=== PATIENT | female | born 1975 ===

== ENCOUNTER 2025-02-22 08:00 | Day surgery (SDC) | payer OTHER ==
[2025-02-18 12:02] VITALS: BP 137/87
[~2025-02-22] VITALS: Ht 160 cm; Wt 68.0 kg
[~2025-02-22 08:00] MED LIST: COZAAR100 MG PO; SYNTHROID112 MCG PO
[2025-02-22] MEDS ORDERED: CEFTRIAXONE SODIUM 2,000 MG VIAL ONE (09:05)
[2025-02-22] MEDS ORDERED: METRONIDAZOLE/SODIUM CHLORIDE 500 MG/100 ML PIGGYBACK IV ONE (09:05)
[2025-02-22] MEDS ORDERED: HEMOSTATIC MATRIX 1 KIT KIT TOP ONE (13:19)
[2025-02-22] MEDS ORDERED: DIBUCAINE 30 GM TUBE ONE (13:20)
[2025-02-22] MEDS ORDERED: BUPIVACAINE HCL/MPF 0.5% 30ML VIAL ONE (13:20)
[2025-02-22] MEDS ORDERED: POVIDONE-IODINE 118 ML BOTT TOP ONE (13:20)
[2025-02-22] MEDS ORDERED: NEURONTIN300 MG PO (14:28)
[2025-02-22] MEDS ORDERED: TRAM1TAB98 PO (14:28)
[2025-02-22] MEDS ORDERED: COLACE100 MG PO (14:28)
[2025-02-22] MEDS ORDERED: ONDANSETRON HCL 2 MG/ML VIAL ONE (15:59)
== END 2025-02-22 20:20 | disposition home or self-care (01) ==
LOC: CIR.AMB 08:00
PROVIDERS: ATTEND Surgery
DX: K64.4 Residual hemorrhoidal skin tags (principal); K64.1 Second degree hemorrhoids; K62.89 Other specified diseases of anus and rectum